=== PATIENT | female | born 1980 | race Caucasian/White ===

== ENCOUNTER 2018-04-12 08:22 | Emergency (ER) | payer BC, OTHER ==
--- NOTE | 2018-04-12 08:56 | ED PDOC ---
Arrival/HPI - General Historian: Patient - History of Present Illness Time/Duration: 1 week Symptom Onset: Gradual Symptom Course: Unchanged Quality: Aching, Cramping Severity Level: 8 <Chung Perry - Last Filed: 04/12/18 12:59> <Janell Kate - Last Filed: 04/12/18 13:37> - General Chief Complaint: Abdominal Pain Time Seen by Provider: 04/12/18 08:49 - History of Present Illness Narrative History of Present Illness (Text): 37 year old female presents with abdominal pain with nausea but no vomiting for a week. Patient states the pain is located in lower abdomen and describes it as a crampy pain with 8/10 intensity. In addition, she has some heartburn. Abdominal pain is no associated with food intake. She also states she has pain in her lower back. Patient denies any diarrhea, fever, chills, chest pain, shortness of breath, dysuria. LMP was over a year ago as patient is on control depo. 04/12/18 08:56 (Chung Perry) Past Medical History - Provider Review Nursing Documentation Reviewed: Yes - Cardiac Hx Cardiac Disorders: No - Pulmonary Hx Respiratory Disorders: No - Neurological Hx Neurological Disorder: No - HEENT Hx HEENT Disorder: No - Renal Hx Renal Disorder: No - Endocrine/Metabolic Hx Endocrine Disorders: No - Hematological/Oncological Hx Blood Disorders: No - Musculoskeletal/Rheumatological Hx Musculoskeletal Disorders: No - Gastrointestinal Hx Gastrointestinal Disorders: No - Genitourinary/Gynecological Hx Genitourinary Disorders: No - Psychiatric Hx Depression: Yes Hx Substance Use: Yes - Surgical History Other/Comment: RIGHT HAND SX - Suicidal Assessment Feels Threatened In Home Enviroment: No <Chung Perry - Last Filed: 04/12/18 12:59> Family/Social History - Physician Review Nursing Documentation Reviewed: Yes Family/Social History: No Known Family HX Smoking Status: Former Smoker Hx Alcohol Use: No Hx Substance Use: Yes Substance used: Marijuana <Chung Perry - Last Filed: 04/12/18 12:59> Allergies/Home Meds <Chung Perry - Last Filed: 04/12/18 12:59> <Janell Kate - Last Filed: 04/12/18 13:37> Allergies/Adverse Reactions: Allergies Penicillins Allergy (Verified 04/12/18 08:34) ANAPHYLAXIS Home Medications: Home Meds Medication Instructions Recorded Confirmed buPROPion XL [Wellbutrin XL] 300 mg PO DAILY 04/12/18 04/12/18 Review of Systems - Review of Systems Constitutional: Normal. absent: Fevers Eyes: Normal ENT: Normal Respiratory: Normal. absent: SOB, Cough, Wheezing Cardiovascular: Normal. absent: Chest Pain, Palpitations, Syncope Gastrointestinal: Abdominal Pain, Nausea. absent: Stool Changes, Constipation, Diarrhea, Vomiting, Food Intolerance Genitourinary Female: absent: Dysuria, Frequency, Urine Output Changes, Vaginal Bleeding, Vaginal Discharge Musculoskeletal: Back Pain Skin: Normal. absent: Rash Neurological: Normal. absent: Headache, Dizziness, Focal Weakness Endocrine: Normal. absent: Polyuria, Polydipsia Hemo/Lymphatic: Normal Psychiatric: Normal <Chung Perry - Last Filed: 04/12/18 12:59> Physical Exam Vital Signs Reviewed: Yes Temperature: Afebrile Blood Pressure: Normal Pulse: Regular Respiratory Rate: Normal Appearance: Positive for: Well-Appearing, Non-Toxic, Comfortable Pain Distress: Mild Mental Status: Positive for: Alert and Oriented X 3 - Systems Exam Head: Present: Atraumatic, Normocephalic Pupils: Present: PERRL Extroacular Muscles: Present: EOMI Conjunctiva: Present: Normal Mouth: Present: Moist Mucous Membranes Neck: Present: Normal Range of Motion Respiratory/Chest: Present: Clear to Auscultation, Good Air Exchange. No: Respiratory Distress Cardiovascular: Present: Regular Rate and Rhythm, Normal S1, S2. No: Murmurs, Tachycardic Abdomen: Present: Tenderness, Normal Bowel Sounds. No: Distention, Rebound, Guarding, Rovsing's Sign Present Back: Present: Midline Tenderness Upper Extremity: No: Edema Lower Extremity: Present: Normal Inspection, NORMAL PULSES. No: Edema, CALF TENDERNESS Neurological: Present: GCS=15, CN II-XII Intact Skin: Present: Warm, Dry Psychiatric: Present: Alert, Oriented x 3 <Chung Perry - Last Filed: 04/12/18 12:59> Vital Signs Temp Pulse Resp BP Pulse Ox 04/12/18 13:18 65 18 137/70 99 04/12/18 11:00 63 18 154/79 H 99 04/12/18 09:02 98.1 F 66 17 126/77 99 04/12/18 08:31 98.2 F 82 18 130/70 97 Medical Decision Making <Chung Perry - Last Filed: 04/12/18 12:59> - Lab Interpretations I have reviewed the lab results: Yes - RAD Interpretation Painter And Decorator: Radiologist <Janell Kate - Last Filed: 04/12/18 13:37> ED Course and Treatment: Plan -CBC, CMP, lipase -Urinalysis -abd US -reasses 04/12/18 09:[address] abdomen/pelvis pending 04/12/18 11:33 CT Abdomen and Pelvis does not show any cute intrabdominal findings Patient will be discharged for antibiotics for UTI 04/12/18 12:58 (Chung Perry) 04/12/18 In agreement with resident note, which includes further HPI details. Patient was seen and evaluated with resident, came up with plan and treatment together. Patient reports to me intermittent abdominal pain for past week. Not associated with meals or eating. No associated fevers or nausea or vomiting. On exam, there is mild right upper quadrant pain noted, on my re-exam NO lower abdominal pain noted. She states she takes Depo, does not get her menstrual period. Denies vaginal bleeding or discharge. Minimal pain noted on initial exam. Will obtain labs, ultrasound. 04/12/18 13:35 On re-exam, patient states she is comfortable and feels better. Ultrasound and CT results reviewed with patient. Ultrasound reading reviewed with patient in laymen's terms. Limitations of imaging studies reviewed with patient, as she is comfortable, nontoxic appearing, stressed need for close follow-up with her PMD for further evaluation for any persistent symptoms. Will tx with Bactrim for UTI. No fever or cva tenderness noted. (Janell Kate) - Lab Interpretations Lab Results: 04/12/18 09:30 04/12/18 09:30 Lab Results 04/12/18 09:30: Urine Color Yellow, Urine Appearance Sl cloudy, Urine pH 6.0, Ur Specific [place] >= 1.030, Urine Protein Trace H, Urine Glucose (UA) Negative , Urine Ketones Negative, Urine Blood Large H, Urine Nitrate Negative, Urine Bilirubin Negative, Urine Urobilinogen 0.2, Ur Leukocyte Esterase Negative, Urine RBC 0 - 2, Urine WBC 0 - 2, Ur Epithelial Cells 6 - 8, Urine Bacteria Mod 04/12/18 09:30: Sodium 144, Potassium 4.3, Chloride 107, Carbon Dioxide 24, Anion Gap 16, BUN 9, Creatinine 1.0, Est GFR ( Amer) > 60, Est GFR (Non- Af Amer) > 60, Random Glucose 98, Calcium 9.7, Total Bilirubin 0.5, AST 24, ALT 34, Alkaline Phosphatase 77, Total Protein 7.5, Albumin 4.6, Globulin 2.9, Albumin/Globulin Ratio 1.6, Lipase 182 04/12/18 09:30: WBC 7.4, RBC 4.31, Hgb 13.0, Hct 38.7, MCV 89.8, MCH 30.2, MCHC 33.6, RDW 12.2, Plt Count 306, MPV 9.8, Gran % 77.7 H, Lymph % (Auto) 17.3 L, [place] % (Auto) 3.3, Eos % (Auto) 1.6, Baso % (Auto) 0.1, Gran # 5.71, Lymph # ( Auto) 1.3, [place] # (Auto) 0.2, Eos # (Auto) 0.1, Baso # (Auto) 0.01 - RAD Interpretation Radiology Orders: 04/12/18 09:15 ABDOMEN COMPLETE [US] Stat 04/12/18 11:28 ABD & PELVIS IV CONTRAST ONLY [CT] Stat <Cuhng Perry - Last Filed: 04/12/18 12:59> - PA / DIEING OUT MACHINE OPERATOR / Resident Statement MD/ has reviewed & agrees with the documentation as recorded. MD/ has examined the patient and agrees with the treatment plan. - Scribe Statement The provider has reviewed the documentation as recorded by the Scribe <Janell Kate - Last Filed: 04/12/18 13:37> - Scribe Statement Judy Bobo Provider Scribe Attestation: All medical record entries made by the Scribe were at my direction and personally dictated by me. I have reviewed the chart and agree that the record accurately reflects my personal performance of the history, physical exam, medical decision making, and the department course for this patient. I have also personally directed, reviewed, and agree with the discharge instructions and disposition. (Janell Kate) Disposition/Present on Arrival - Present on Arrival Any Indicators Present on Arrival: No History of DVT/PE: No History of Uncontrolled Diabetes: No Urinary Catheter: No History of Decub. Ulcer: No History Surgical Site Infection Following: None - Disposition Have Diagnosis and Disposition been Completed?: Yes Disposition Time: 13:01 Patient Plan: Discharge <Chung Perry - Last Filed: 04/12/18 12:59> <Janell Kate - Last Filed: 04/12/18 13:37> - Disposition Diagnosis: UTI (urinary tract infection), Abdominal pain Disposition: HOME/ ROUTINE Condition: GOOD Discharge Instructions (ExitCare): Urinary Tract Infections in Adults, Acute Abdomen (Belly Pain), Adult (DC) Additional Instructions: Please take antibiotics twice a day for 5 days If symptoms get worse please return. Prescriptions: Sulfamethoxazole/Trimethoprim [Bactrim DS 800 mg-160 mg] 1 tab PO BID #10 tab Forms: [employer] ([place])
[2018-04-12 09:06] VITALS: TEMP 98.1; O2SAT 99
[2018-04-12 09:43] LABS: ALB/GLOB RATIO 1.6 (1.1-1.8); ALBUMIN 4.6 g/dL (3.0-4.8); ALT/SGPT 34 U/L (7-56); AST/SGOT 24 U/L (14-36); BLOOD UREA NITROGEN 9 mg/dL (7-21); CALCIUM 9.7 mg/dL (8.4-10.5); GFR AFRICAN-AMERICAN > 60; GFR NON-AFRICAN AMERICAN > 60; LIPASE 182 U/L (23-300)
[2018-04-12 09:46] LABS: BASO # 0.01 K/mm3 (0.0-2.0); BASO % 0.1 % (0.0-3.0); EOS # 0.1 (0.0-0.7); EOS % 1.6 % (1.5-5.0); GRAN # 5.71 (1.4-6.5); GRAN % 77.7 % (50.0-68.0); LYMPH # 1.3 (1.2-3.4); LYMPH % 17.3 % (22.0-35.0); MEAN CELL VOLUME 89.8 fl (80.0-105.0); MEAN CORPUSCULAR HEMOGLOBIN 30.2 pg (25.0-35.0); MEAN CORPUSCULAR HGB CONC 33.6 g/dl (31.0-37.0); MEAN PLATELET VOLUME 9.8 fl (7.0-11.0); MONO # 0.2 (0.1-0.6); MONO % 3.3 % (1.0-6.0); RBC 4.31 10^6/uL (3.5-6.1); RED CELL DISTRIBUTION WIDTH 12.2 % (11.5-14.5); WHITE BLOOD COUNT 7.4 10^3/ul (4.5-11.0)
[2018-04-12 09:47] LABS: URINE BILIRUBIN NEGATIVE (NEGATIVE); URINE BLOOD LARGE (NEGATIVE); URINE GLUCOSE (UA) NEGATIVE (NEGATIVE); URINE LEUKOCYTE ESTERASE NEGATIVE Leu/uL (NEGATIVE); URINE PROTEIN TRACE mg/dL (<30 mg/dL); URINE UROBILINOGEN 0.2 E.U./dL (<1 E.U./dL)
[2018-04-12 09:48] LABS: URINE APPEARANCE SL CLOUDY (CLEAR); URINE COLOR YELLOW (YELLOW)
[2018-04-12 09:52] LABS: URINE RBC 0 - 2 /hpf (0-2); URINE WBC 0 - 2 /hpf (0-6)
[2018-04-12 09:53] LABS: URINE BACTERIA MOD (NEG)
[2018-04-12 11:07] VITALS: RESP 18
--- NOTE | 2018-04-12 11:11 | US ---
HISTORY: abdominal pain COMPARISON: None. TECHNIQUE: Sonographic evaluation of the abdomen. FINDINGS: LIVER: Measures 13.07 x 10.35 cm. Increased echogenicity of the liver parenchyma. No mass. No intrahepatic bile duct dilatation. GALLBLADDER: Unremarkable. No gallstones. COMMON BILE DUCT: Measures 4 mm. No stones. No dilatation. PANCREAS: Unremarkable as visualized. No mass. No ductal dilatation. RIGHT KIDNEY: Measures 10.04 x 3.86 x 4.75cm. Normal echogenicity. No calculus, mass, or hydronephrosis. LEFT KIDNEY: Measures 9.77 x 5.00 x 4.71cm. Normal echogenicity. No calculus, mass, or hydronephrosis. SPLEEN: Normal in size and contour. No mass. 6.57 x 2.96 AORTA: No aneurysmal dilatation. IVC: Unremarkable. OTHER FINDINGS: None. IMPRESSION: Echogenic liver consistent with fatty infiltration. No acute findings
[2018-04-12] MEDS ORDERED: Iohexol 350 MG/100 ML VIAL ONE (11:34)
--- NOTE | 2018-04-12 12:50 | CT ---
PROCEDURE: CT Abdomen and Pelvis with contrast HISTORY: llq abdominal pain COMPARISON: None. TECHNIQUE: Contrast dose: 100 cc of Omnipaque 350 Radiation dose: Total exam DLP = 492 mGy-cm. This CT exam was performed using one or more of the following dose reduction techniques: Automated exposure control, adjustment of the mA and/or kV according to patient size, and/or use of iterative reconstruction technique. FINDINGS: LOWER THORAX: Unremarkable. LIVER: Unremarkable. No gross lesion or ductal dilatation. GALLBLADDER AND BILE DUCTS: Unremarkable. PANCREAS: Unremarkable. No gross lesion or ductal dilatation. SPLEEN: Unremarkable. ADRENALS: Unremarkable. No mass. KIDNEYS AND URETERS: Unremarkable. No hydronephrosis. No solid mass. VASCULATURE: Unremarkable. No aortic aneurysm. BOWEL: Unremarkable. No obstruction. No gross mural thickening. APPENDIX: Normal appendix. PERITONEUM: Unremarkable. No free fluid. No free air. LYMPH NODES: Unremarkable. No enlarged lymph nodes. BLADDER: Unremarkable. REPRODUCTIVE: Unremarkable. BONES: No acute fracture. OTHER FINDINGS: None. IMPRESSION: No acute intra-abdominal findings
[2018-04-12 13:19] VITALS: BP 137/70; PULSE 65
== END 2018-04-12 13:18 | disposition home or self-care (01) ==
LOC: ED 08:22
DX: N39.0 Urinary tract infection, site not specified (principal); R10.32 Left lower quadrant pain
CPT/HCPCS: 74177; 76700; 80053; 81001; 83690; 85025; 99283; Q9967

== ENCOUNTER 2018-06-09 00:17 | Emergency (ER) | payer BC ==
[2018-06-09 00:39] VITALS: BP 123/80; PULSE 94; RESP 16; TEMP 98.7; O2SAT 99; BMI 23.4
--- NOTE | 2018-06-09 01:11 | ED PDOC ---
Arrival/HPI - General Chief Complaint: Abdominal Pain Time Seen by Provider: 06/09/18 00:24 Historian: Patient - History of Present Illness Narrative History of Present Illness (Text): 06/09/18 01:04 A 37 year old female, with no significant past medical history, presents to the Emergency Department with complaint of 2 day duration left sided abdominal discomfort with associated nausea, diarrhea, and dizziness. The patient notes that she also has been experiencing urinary frequency. Patient states that her symptoms feel similar to her previous UTI symptoms a few months ago. The patient denies fevers, chills, headache, sore throat, cough, chest pain, shortness of breath, dyspnea on exertion, vomiting, neck/back pain, bowel changes or any other complaint. Time/Duration: Other (2 Days) Symptom Onset: Sudden Symptom Course: Unchanged Activities at Onset: Rest, Light Context: Home Past Medical History - Provider Review Nursing Documentation Reviewed: Yes - Infectious Disease Hx of Infectious Diseases: None - Reproductive Menopause: No - Cardiac Hx Cardiac Disorders: No - Pulmonary Hx Respiratory Disorders: No - Neurological Hx Neurological Disorder: No - HEENT Hx HEENT Disorder: No - Renal Hx Renal Disorder: No - Endocrine/Metabolic Hx Endocrine Disorders: No - Hematological/Oncological Hx Blood Disorders: No - Musculoskeletal/Rheumatological Hx Musculoskeletal Disorders: No - Gastrointestinal Hx Gastrointestinal Disorders: No - Genitourinary/Gynecological Hx Genitourinary Disorders: No - Psychiatric Hx Depression: Yes Hx Substance Use: Yes - Surgical History Other/Comment: RIGHT HAND SX - Suicidal Assessment Feels Threatened In Home Enviroment: No Family/Social History - Physician Review Nursing Documentation Reviewed: Yes Family/Social History: No Known Family HX Smoking Status: Former Smoker Hx Alcohol Use: No Hx Substance Use: Yes Substance used: Marijuana Allergies/Home Meds Allergies/Adverse Reactions: Allergies Penicillins Allergy (Verified 04/12/18 08:34) ANAPHYLAXIS Home Medications: Home Meds Medication Instructions Recorded Confirmed buPROPion XL [Wellbutrin XL] 300 mg PO DAILY 04/12/18 04/12/18 Review of Systems - Physician Review All systems were reviewed & negative as marked: Yes - Review of Systems Constitutional: absent: Fevers Respiratory: absent: SOB, Cough Cardiovascular: absent: Chest Pain, LEMUS Gastrointestinal: Abdominal Pain, Diarrhea, Nausea. absent: Stool Changes, Vomiting Genitourinary Female: Frequency Musculoskeletal: absent: Back Pain, Neck Pain Neurological: Dizziness. absent: Headache Physical Exam Vital Signs Reviewed: Yes Vital Signs Temp Pulse Resp BP Pulse Ox 06/09/18 00:34 98.7 F 94 H 16 123/80 99 Temperature: Afebrile Blood Pressure: Normal Pulse: Tachycardic Respiratory Rate: Normal Appearance: Positive for: Well-Appearing, Non-Toxic, Comfortable Pain Distress: None Mental Status: Positive for: Alert and Oriented X 3 - Systems Exam Head: Present: Atraumatic, Normocephalic Pupils: Present: PERRL Extroacular Muscles: Present: EOMI Conjunctiva: Present: Normal Mouth: Present: Moist Mucous Membranes Neck: Present: Normal Range of Motion Respiratory/Chest: Present: Clear to Auscultation, Good Air Exchange. No: Respiratory Distress, Accessory Muscle Use Cardiovascular: Present: Regular Rate and Rhythm, Normal S1, S2. No: Murmurs Abdomen: No: Tenderness, Distention, Peritoneal Signs Back: Present: Normal Inspection Upper Extremity: Present: Normal Inspection. No: Cyanosis, Edema Lower Extremity: Present: Normal Inspection. No: Edema Neurological: Present: GCS=15, CN II-XII Intact, Speech Normal Skin: Present: Warm, Dry, Normal Color. No: Rashes Psychiatric: Present: Alert, Oriented x 3, Normal Insight, Normal Concentration Medical Decision Making ED Course and Treatment: 06/09/18 01:12 Impression: A 37 year old female presents to the Emergency Department with a complaint of left sided abdominal pain with associated nausea, vomiting, and dizziness. Plan: -- Abdomen/ Pelvis CT -- Urinalysis -- Labs -- IV Fluids and Zofran -- Reassess and disposition Progress Notes: CT Abdomen and Pelvis With Intravenous Contrast EXAM DATE/TIME: 06/09/2018 2:38 AM Dictated and Authenticated by: Manpreet Kim MD 06/09/2018 5:40 AM Eastern Time ([place] & [place]) IMPRESSION: No definite acute abdominal pathologic finding. 06/09/18 06:06 On reevaluation the patient feels better and is in no acute distress. I have discussed the results and plan with the patient, who expresses understanding. Patient given the opportunity to ask question, all questions were answered and there is agreement with the plan to discharge the patient home. Patient is stable for discharge. Patient was instructed to follow up with physician/clinic in 1-2 days or return if symptoms persist/worsen or new concerning symptoms arise. - Lab Interpretations Lab Results: 06/09/18 01:30 06/09/18 01:30 Lab Results 06/09/18 02:42: Urine Color Yellow, Urine Appearance Sl cloudy, Urine pH 6.0, Ur Specific [place] 1.025, Urine Protein Trace H, Urine Glucose (UA) Negative, Urine Ketones Trace H, Urine Blood Small H, Urine Nitrate Negative, Urine Bilirubin Negative, Urine Urobilinogen 0.2, Ur Leukocyte Esterase Negative, Urine RBC 1 - 3, Urine WBC 0 - 2, Ur Epithelial Cells Many, Urine Bacteria Small , Urine HCG, Qual Negative 06/09/18 01:30: WBC 9.6 D, RBC 4.00, Hgb 11.9 L, Hct 36.7, MCV 91.8, MCH 29.8, MCHC 32.4, RDW 13.1, Plt Count 341, MPV 10.2 06/09/18 01:30: Sodium 141, Potassium 3.6, Chloride 107, Carbon Dioxide 26, Anion Gap 12, BUN 15, Creatinine 0.9, Est GFR ( Amer) > 60, Est GFR (Non- Af Amer) > 60, Random Glucose 84, Calcium 9.1, Total Bilirubin 0.6, AST 34, ALT 50, Alkaline Phosphatase 79, Total Protein 7.2, Albumin 4.2, Globulin 2.9, Albumin/Globulin Ratio 1.4, Lipase 254 I have reviewed the lab results: Yes - RAD Interpretation Radiology Orders: 06/09/18 02:38 ABD & PELVIS IV CONTRAST ONLY [CT] Stat - Medication Orders Current Medication Orders: Discontinued Medications Sodium Chloride (Sodium Chloride 0.9%) 1,000 mls @ 999 mls/hr IV .Q1H1M STA Stop: 06/09/18 02:12 Last Admin: 06/09/18 01:48 Dose: 999 mls/hr eMAR Start Stop Document 06/09/18 01:48 JOL (Rec: 06/09/18 01:48 [id number]) Intravenous Solution Start Date 06/09/18 Start Time 01:48 End Date 06/09/18 End time 02:49 Total Infusion Time 61 Ketorolac Tromethamine (Toradol) 30 mg IVP ONCE ONE Stop: 06/09/18 03:11 Ondansetron HCl (Zofran Inj) 4 mg IVP ONCE ONE Stop: 06/09/18 01:13 Last Admin: 06/09/18 01:48 Dose: 4 mg IVP Administration Document 06/09/18 01:48 JAZ (Rec: 06/09/18 01:49 [id number]) Charges for Administration # of IVP Administrations 1 - Scribe Statement The provider has reviewed the documentation as recorded by the Scribe Yane Oconnor Provider Scribe Attestation: All medical record entries made by the Scribe were at my direction and personally dictated by me. I have reviewed the chart and agree that the record accurately reflects my personal performance of the history, physical exam, medical decision making, and the department course for this patient. I have also personally directed, reviewed, and agree with the discharge instructions and disposition. Disposition/Present on Arrival - Present on Arrival Any Indicators Present on Arrival: No History of DVT/PE: No History of Uncontrolled Diabetes: No Urinary Catheter: No History of Decub. Ulcer: No History Surgical Site Infection Following: None - Disposition Have Diagnosis and Disposition been Completed?: Yes Diagnosis: Gastroenteritis Disposition: HOME/ ROUTINE Disposition Time: 06:03 Patient Plan: Discharge Condition: GOOD Discharge Instructions (ExitCare): Gastroenteritis (ED) Additional Instructions: Drink plenty of liquids/bland diet next couple of days/follow up with your doctor this week Referrals: FAMILY PROVIDER,NO [Primary Care Provider] - Follow up with primary Forms: [employer] ([place]), WORK NOTE
[2018-06-09] MEDS ORDERED: Sodium Chloride 0.9% 1,000 ML IV STA (01:12)
[2018-06-09 01:50] LABS: ALB/GLOB RATIO 1.4 (1.1-1.8); ALBUMIN 4.2 g/dL (3.0-4.8); ALT/SGPT 50 U/L (7-56); AST/SGOT 34 U/L (14-36); BLOOD UREA NITROGEN 15 mg/dL (7-21); CALCIUM 9.1 mg/dL (8.4-10.5); GFR AFRICAN-AMERICAN > 60; GFR NON-AFRICAN AMERICAN > 60; LIPASE 254 U/L (23-300)
[2018-06-09 01:51] LABS: HEMOGLOBIN 11.9 g/dL (12.0-16.0); MEAN CELL VOLUME 91.8 fl (80.0-105.0); MEAN CORPUSCULAR HEMOGLOBIN 29.8 pg (25.0-35.0); MEAN CORPUSCULAR HGB CONC 32.4 g/dl (31.0-37.0); MEAN PLATELET VOLUME 10.2 fl (7.0-11.0); RED CELL DISTRIBUTION WIDTH 13.1 % (11.5-14.5); WHITE BLOOD COUNT 9.6 10^3/ul (4.5-11.0)
[2018-06-09 02:50] LABS: URINE BILIRUBIN NEGATIVE (NEGATIVE); URINE BLOOD SMALL (NEGATIVE); URINE GLUCOSE (UA) NEGATIVE (NEGATIVE); URINE LEUKOCYTE ESTERASE NEGATIVE Leu/uL (NEGATIVE); URINE PROTEIN TRACE mg/dL (<30 mg/dL); URINE UROBILINOGEN 0.2 E.U./dL (<1 E.U./dL)
[2018-06-09 02:56] LABS: URINE APPEARANCE SL CLOUDY (CLEAR); URINE COLOR YELLOW (YELLOW)
[2018-06-09] MEDS ORDERED: Iohexol 350 MG/100 ML VIAL ONE (02:57)
[2018-06-09 02:59] LABS: HCG,QUALITATIVE URINE NEGATIVE (NEGATIVE)
[2018-06-09 03:06] LABS: URINE BACTERIA SMALL (NEG); URINE EPITHELIAL CELLS MANY /hpf (0-5); URINE WBC 0 - 2 /hpf (0-6)
--- NOTE | 2018-06-09 09:37 | CT ---
Date of service: 06/09/2018 PROCEDURE: CT Abdomen and Pelvis with contrast HISTORY: abdominal pain COMPARISON: 04/12/2018 TECHNIQUE: Contrast dose: 96 cc Omnipaque 350 Radiation dose: Total exam DLP = 620.60 mGy-cm. This CT exam was performed using one or more of the following dose reduction techniques: Automated exposure control, adjustment of the mA and/or kV according to patient size, and/or use of iterative reconstruction technique. FINDINGS: LOWER THORAX: Unremarkable. LIVER: Unremarkable. No gross lesion or ductal dilatation. GALLBLADDER AND BILE DUCTS: Unremarkable. PANCREAS: Unremarkable. No gross lesion or ductal dilatation. SPLEEN: Unremarkable. ADRENALS: Unremarkable. No mass. KIDNEYS AND URETERS: Unremarkable. No hydronephrosis. No solid mass. VASCULATURE: Unremarkable. No aortic aneurysm. BOWEL: Unremarkable. No obstruction. No gross mural thickening. APPENDIX: Normal appendix. PERITONEUM: Trace fluid in cul-de-sac. LYMPH NODES: Unremarkable. No enlarged lymph nodes. BLADDER: Unremarkable. REPRODUCTIVE: Normal uterus BONES: No acute fracture. OTHER FINDINGS: None. IMPRESSION: Trace fluid in cul-de-sac. Nonspecific. No acute abnormality identified.
== END 2018-06-09 06:17 | disposition home or self-care (01) ==
LOC: ED 00:17
DX: K52.9 Noninfective gastroenteritis and colitis, unspecified (principal); Z87.891 Personal history of nicotine dependence
CPT/HCPCS: 74177; 80053; 81001; 83690; 84703; 85027; 96361; 96374; 99283; J2405; J7030; Q9967